=== PATIENT | female | born 1985 | race Caucasian/White ===

== ENCOUNTER 2018-10-22 08:20 | Emergency (ER) | payer SELFPAY ==
[2018-10-22 08:42] LABS: Bilirubin Negative (Negative); Blood, Urine Trace (Negative); Clarity Clear (Clear); Glucose, Urine (Dipstick) Negative (Negative); Leukocyte Negative (Negative); Protein, Urine (Dipstick) Negative (Neg-Trace)
[2018-10-22 08:49] LABS: Bacteria/HPF None Seen HPF (None Seen); Nitrite Unable to Interpret (Negative); RBC/HPF 0-3 HPF (0-3); Squamous Epithelial 0-3 HPF (0-3); WBC/HPF 0-3 HPF (0-3)
== END 2018-10-22 08:55 | disposition home or self-care (01) ==
LOC: BURERS 08:20
DX: N30.00 Acute cystitis without hematuria (principal)
CPT/HCPCS: 81003; 81015; 87077; 87086; 87186; 99283